=== PATIENT | male | born 1995 | race Caucasian/White ===

== ENCOUNTER → 2019-12-12 | Outpatient (CLI) | payer BC ==
[~2019-12-12] MED LIST: RITALIN
== END ==
LOC: NEURO 12-08 13:38
PROVIDERS: ATTEND Family Medicine
DX: G47.10 Hypersomnia, unspecified (principal); R51 Headache; R68.89 Other general symptoms and signs; F32.0 Major depressive disorder, single episode, mild; F41.9 Anxiety disorder, unspecified; Z82.0 Family history of epilepsy and other diseases of the nervous system

== ENCOUNTER 2021-04-24 11:38 | Emergency (ER) | payer BC ==
[~2021-04-24] VITALS: Ht 182.9 cm; Wt 102.1 kg
[2021-04-24] MEDS ORDERED: DESYREL300 MG PO (11:54)
[2021-04-24] MEDS ORDERED: RISPERIDONE0.5 MG PO (11:54)
[2021-04-24 14:50] VITALS: BP 123/67
== END 2021-04-24 14:50 | disposition home or self-care (01) ==
LOC: ER 11:38
DX: S62.394A Other fracture of fourth metacarpal bone, right hand, initial encounter for closed fracture (principal); Z79.899 Other long term (current) drug therapy; W22.8XXA Striking against or struck by other objects, initial encounter; Y93.89 Activity, other specified; Y92.89 Other specified places as the place of occurrence of the external cause; Y99.8 Other external cause status